=== PATIENT | male | born 1965 | race Caucasian/White ===

== ENCOUNTER 2021-08-10 09:52 | Emergency (ER) | payer OTHER, SELFPAY ==
[2021-08-10 09:53] VITALS: BP 174/100; PULSE 85; RESP 20; TEMP 36.7; O2SAT 100; BMI 23.7
--- NOTE | 2021-08-10 09:53 | CT_ITS ---
FINAL REPORT CLINICAL HISTORY: Stroke Alert FINDINGS: Axial images of the head were obtained without contrast. Coronal reformatted images were also obtained. This study was performed with techniques to keep radiation doses as low as reasonably achievable (ALARA). Individualized dose reduction techniques using automated exposure control or adjustment of mA and/or kV according to the patient''s size were employed. There is generalized age-appropriate atrophy. Periventricular low-attenuation areas are seen consistent with mild chronic ischemic changes. There is a small, chronic lacunar infarct in the left external capsule. There is no evidence of intracranial hemorrhage or mass. There is no evidence of acute infarct. There is no evidence of shift of the midline structures. No skull abnormality is seen on the bone window images. IMPRESSION: Atrophy and mild periventricular chronic ischemic changes. Small, chronic lacunar infarct. No acute intracranial abnormality identified. Reviewed, Interpreted and Dictated by Ammon Cramer III, MD Transcribed by Debra Franco Authenticated by Ammon Cramer III, MD on 08/10/2021 10:10:55 [facility]
--- NOTE | 2021-08-10 09:55 | PC.NURSE ---
Pt straight to CT upon arrival
--- NOTE | 2021-08-10 10:02 | ECG_ITS ---
APPROVED REPORT Exam: Resting ECG HR:79 bpm ECG Measurements Heart Rate 79 AXES VT 139 P 44 QRSd 98 QRS 50 QT 349 T 11 QTc 384 Conclusion SINUS RHYTHM NORMAL ECG UNCONFIRMED REPORT Electronically signed by : Royce Hernandez MD 08/10/2021 20:34:02
--- NOTE | 2021-08-10 10:04 | PC.NURSE ---
blood sent to lab.
--- NOTE | 2021-08-10 10:04 | PC.NURSE ---
FSBS 368 upon arrival
[2021-08-10 10:10] LABS: Basophils # 0.1 K/mm3 (0-0.2); Eosinophils # 0.2 K/mm3 (0.0-0.4); Eosinophils % 2.9 % (0.1-12.0); Hematocrit 53.1 % (42.0-52.0); Hemoglobin 17.3 g/dL (14.1-18.0); Lymphocytes # 1.3 K/mm3 (0.7-4.5); Lymphocytes % 20.3 % (10-50); Mean Corpuscular HGB Conc 32.6 g/dL (31.8-35.4); Mean Corpuscular Hemoglobin 28.8 pg (27.0-31.2); Mean Corpuscular Volume 88.6 fl (80-94); Mean Platelet Volume 7.7 fl (7.4-10.4); Monocytes # 0.2 K/mm3 (0.1-1.0); Monocytes % 3.6 % (1.7-9.3); Neutrophils # 4.7 K/mm3 (1.8-7.8); Neutrophils % 72.2 % (37.0-80.0); Platelet Count 279 K/mm3 (142-424); Red Cell Distribution Width 13.7 % (11.5-17.5); White Blood Count 6.5 K/mm3 (4.8-10.8)
--- NOTE | 2021-08-10 10:10 | PC.NURSE ---
[facility]KE [facility] LA [facility] speaking with Dr Shubham Daugherty at .
--- NOTE | 2021-08-10 10:15 | [facility].EDGENADL ---
ED Disposition Clinical Impression: Acute CVA (cerebrovascular accident) Disposition: Xfer Other Condition on Discharge: Serious Forms: Transfer Record - ED - Critical Care Critical Care Time: Yes (35 min) Attestation: On , the high probability of a clinically significant, sudden or life threatening deterioration of the following system(s) required my full and direct attention, intervention and personal management. The time I documented below is in addition to time spent performing reported procedures but includes the following listed in this critical care notation. Vital system(s) involved:: Central Nervous System My critical care processes included: Assessment & monitoring of V/S, Initial and Re-exams, Data Review/Interpretation, Coordinating Care, Medication Orders and management, Documentation Medical Decision Making - Medical Records Medical records reviewed: Yes: I reviewed the patient's medical records. - Arnaldo Inquiry Pt receiving controlled substance: No - Lab Data Lab Results 08/10/21 10:00: WBC 6.5, RBC 6.00, Hgb 17.3, Hct 53.1 H, MCV 88.6, MCH 28.8, MCHC 32.6, RDW 13.7, Plt Count 279, MPV 7.7, Neut % (Auto) 72.2, Lymph % (Auto) 20.3, [place]on % (Auto) 3.6, Eos % (Auto) 2.9, Baso % (Auto) 1.0, Neut # (Auto) 4.7, Lymph # (Auto) 1.3, Fallon # (Auto) 0.2, Eos # (Auto) 0.2, Baso # (Auto) 0.1 08/10/21 10:00: Sodium 130 L, Potassium 4.9, Chloride 98, Carbon Dioxide 23, Anion Gap 13.9, BUN 11, Creatinine 0.70, Estimated GFR 117, Est GFR ( Amer) 142, Glucose 406 H*, Calcium 9.4, Total Bilirubin 0.6, AST 30, ALT 26, Alkaline Phosphatase 211 H, Total Protein 7.5, Albumin 4.3, Globulin 3.2, Albumin/Globulin Ratio 1.3 08/10/21 10:28: PT 10.6, INR 0.93, APTT 23.7 Result diagrams: 08/10/21 10:00 08/10/21 10:00 Orders (Tests/Meds): ED MEDICATIONS Generic Name Dose Route Start Last Admin Trade Name Freq PRN Reason Stop Dose Admin Sodium Chloride 1,000 mls @ 999 mls/hr 08/10/21 10:15 Sod Chlor 0.9% 1000ml Bag IV 08/10/21 11:15 .[id number] KEILA Discontinued Medications Generic Name Dose Route Start Last Admin Trade Name Mega PRN Reason Stop Dose Admin Alteplase, Recombinant 69.6 mg 08/10/21 10:15 Alteplase Recombinant 100mg Vial IV 08/10/21 10:16 ONCE ONE Medical Decision Narrative: ekg by mensarely, qrs narrow, no st elev discussed with dr Palmer stroke service accepts transfer and recs for tpa with no contraindications ct no bleed bp 174/100m pt denies any med histroy or bleed or surgery r/b/a explianed to pt reeval, donell here stable exam and vitals for transport General Adult HPI - General Stated complaint: Stroke Alert Time Seen by Provider: 08/10/21 10:00 Mode of Arrival: EMS Source of Information: EMS Limitations: Physical Limitations - History of Present Illness HPI narrative: sudden onset slurred speech and viz loss and leftr sided weakness 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 ROS Obtained: Yes All systems reviewed & no additional complaints Physical Exam - General General appearance: alert, in no apparent distress - Head Head exam: atraumatic, normocephalic - Eye Eye exam: Present: normal appearance, PERRL, EOMI - ENT ENT exam: Present: normal exam, normal oropharynx - Neck Neck exam: Present: normal inspection, full ROM - Chest Chest inspection: Present: normal inspection, symmetric chest wall rise - Respiratory Respiratory exam: Present: normal lung sounds bilaterally. Absent: respiratory distress, wheezes - Cardiovascular Cardiovascular exam: Present: regular rate, normal rhythm. Absent: tachycardia - Abdominal Exam
[2021-08-10 10:20] VITALS: BP 170/101; PULSE 80; RESP 18; O2SAT 100
[2021-08-10 10:24] LABS: Chloride 98 mmol/L (98-107); Potassium 4.9 mmoL/L (3.5-5.1); Sodium 130 mmol/L (136-145)
[2021-08-10 10:26] LABS: Alanine Aminotransferase 26 U/L (12-78); Aspartate Amino Transferase 30 U/L (17-59); Blood Urea Nitrogen 11 mg/dl (9-20); Estimated Glomerular Filt Rate 117 ml/min (>60); GFR (African American) 142 ML/MIN (>60)
[2021-08-10 10:27] LABS: Albumin Level 4.3 g/dl (3.5-5.0); Albumin/Globulin Ratio 1.3 (1.1-1.8); Alkaline Phosphatase 211 U/L (38-126); Anion Gap 13.9 mEq/L (5-15); Bilirubin,Total 0.6 mg/dl (0.2-1.3); Calcium 9.4 mg/dl (8.4-10.2); Carbon Dioxide 23 mmol/L (22.0-30.0); Globulin 3.2 g/dL (1.3-3.2); Total Protein,Serum 7.5 g/dl (6.3-8.2)
[2021-08-10 10:31] LABS: Glucose 406 mg/dl (74-100)
--- NOTE | 2021-08-10 10:39 | PC.NURSE ---
1000 FSBS 368 new loss of vision, MD at bedside 1013 Cathie Kaminski Rn speaking with pharmacy on TPA dosage 1018 [place] 2 accepted flight 1025 Cathie Rodriguez RN speaking with pt's 1029 at bedside 1031 Critical glucose level called to Renee Crouch RN 1032 [place] 2 9 min ETA
[2021-08-10 10:43] VITALS: BP 168/97; PULSE 83; O2SAT 96
--- NOTE | 2021-08-10 10:49 | PC.NURSE ---
flight crew at bedside
--- NOTE | 2021-08-10 10:49 | PC.NURSE ---
1200mL of clear urine emptied from [facility].
[2021-08-10 10:52] LABS: Activated Partial Thrombo Time 23.7 seconds (22.8-30.6); INR 0.93 (0.9-1.1); Prothrombin Time 10.6 seconds (10.1-12.5)
[2021-08-10 11:03] VITALS: BP 168/97; PULSE 81; RESP 18; TEMP 36.7; O2SAT 99
--- NOTE | 2021-08-10 11:03 | PC.NURSE ---
pt leaving with flight crew
== END 2021-08-10 11:05 | disposition short-term general hospital (02) ==
PROVIDERS: Emergency Provider Emergency Medicine
DX: I63.89 Other cerebral infarction (principal); R47.81 Slurred speech; H53.8 Other visual disturbances; R29.717 NIHSS score 17
CPT/HCPCS: 37195; 36415; 70450; 80053; 85025; 85610; 85730; 93005; 96365; 96367; 99284; J2997